=== PATIENT | male | born 1935 | race Hispanic/Latino ===

== ENCOUNTER 2020-04-24 19:01 | Emergency (ER) | payer MEDICARE ==
--- NOTE | 2020-04-24 19:05 | Emergency Department Report ---
Blank Doc - Documentation Documentation: 85-year-old male that presents with mechincal trip and fall and hit face against the toilet. This initial assessment/diagnostic orders/clinical plan/treatment(s) is/are subject to change based on patient's health status, clinical progression and re- assessment by fellow clinical providers in the ED. Further treatment and workup at subsequent clinical providers discretion. Patient/guardians urged not to elope from the ED as their condition may be serious if not clinically assessed and managed. Initial orders include: 1- Patient sent to [facility] for further evaluation and treatment 2- CT head/cervical spine 3- cervical collar
[2020-04-24 19:19] VITALS: BP 129/93
--- NOTE | 2020-04-24 19:48 | Cat Scan Report ---
CT HEAD WITHOUT CONTRAST INDICATION / CLINICAL INFORMATION: Trauma. Patient sustained head injury secondary to trip and fall. TECHNIQUE: All CT scans at this location are performed using CT dose reduction for ALARA by means of automated e xposure control. COMPARISON: None available. FINDINGS: HEMORRHAGE: No evidence of intracranial hemorrhage or extra-axial fluid collection. EXTRA-AXIAL SPACES: Cortical sulci and sylvian fissures are enlarged reflecting a degree of parenchym al volume loss which is within normal limits for the patient's age of 85 years. Basilar cisterns have an unremarkable appearance. VENTRICULAR SYSTEM: The third and lateral ventricles are mildly enlarged reflecting presence of age r elated parenchymal volume loss. CEREBRAL PARENCHYMA: Periventricular and deep white matter lucency is observed. This is probably seco ndary to microvascular ischemic change. There is no indication of recent infarction. No areas of ence phalomalacia are identified. MIDLINE SHIFT OR HERNIATION: There is no mass effect. CEREBELLUM / BRAINSTEM: Brainstem has an unremarkable appearance. Age related cerebellar atrophy is n oted. MIDLINE STRUCTURES:Pituitary gland has an unremarkable appearance. No abnormalities are seen in the p ineal region. INTRACRANIAL VESSELS:Calcified atherosclerotic plaque is present along the course of the cavernous se gments of both internal carotid arteries. Similar findings are seen at the distal vertebral arteries. There is moderate vallecular ectasia of the basilar artery. ORBITS: Status post bilateral cataract surgery. No additional abnormality. SOFT TISSUES of HEAD: There is a scalp hematoma involving the forehead lateralizing to the left the m idline. Subcutaneous emphysema is observed indicating the presence of a scalp laceration. CALVARIUM: Evaluation of bone windows reveals no abnormalities. PARANASAL SINUSES / MASTOID AIR CELLS: Paranasal sinuses are free from inflammatory mucosal disease. Mastoid air cells are normally pneumatized. ADDITIONAL FINDINGS: None. IMPRESSION: 1. Left forehead scalp hematoma and laceration. 2. Age-related involutional changes of parenchymal volume loss and microvascular ischemia. 3. No acute intracranial abnormality. Signer Name: Stew Brooks MD Signed: 04/24/2020 7:43 PM Workstation Name: [id number]
[2020-04-24 20:06] LABS: Basophils % (Auto) 0.6 % (0.0-1.8); Eosinophils # (Auto) 0.2 K/mm3 (0.0-0.4); Eosinophils % (Auto) 2.2 % (0.0-4.3); Hematocrit 38.2 % (35.5-45.6); Hemoglobin 13.1 gm/dl (11.8-15.2); Lymphocytes # (Auto) 1.6 K/mm3 (1.2-5.4); Mean Corpuscular HGB Conc 34 % (32-34); Mean Corpuscular Volume 94 fl (84-94); Monocytes # (Auto) 0.6 K/mm3 (0.0-0.8); Monocytes % (Auto) 8.7 % (0.0-7.3); Platelet Count 204 K/mm3 (140-440); Red Blood Count 4.05 M/mm3 (3.65-5.03)
[2020-04-24 20:26] LABS: Alanine Aminotransferase 23 units/L (7-56); Albumin 4.1 g/dL (3.9-5); BUN/Creatinine Ratio 20; Blood Urea Nitrogen 24 mg/dL (9-20); Calcium 9.2 mg/dL (8.4-10.2); Hemolysis Index 20
[2020-04-24 20:27] LABS: INR 2.7 (0.87-1.13)
[2020-04-24 20:28] LABS: Partial Thromboplastin Time 46.2 Sec. (24.2-36.6)
--- NOTE | 2020-04-24 20:36 | Cat Scan Report ---
CT CERVICAL SPINE WITHOUT CONTRAST INDICATION / CLINICAL INFORMATION: Trauma. Slip and fall with resultant neck injury. Neck pain. TECHNIQUE: Axial CT images were obtained through the cervical spine. Sagittal and coronal reformatted images wer e produced. All CT scans at this location are performed using CT dose reduction for ALARA by means of automated exposure control. COMPARISON: None available. FINDINGS: ALIGNMENT: There is a levoscoliosis in the cervical region. Exaggerated thoracic kyphosis is associat ed with loss of the lower cervical lordosis. There is no indication of traumatic subluxation VERTEBRAE: No indication of fracture. DISC SPACES: Advanced loss of disc height is noted at the C5-6, C6-7 and C7-T1 levels. INDIVIDUAL LEVEL ANALYSIS: C2-3: Loss of disc height is noted. Central spinal canal and neuroforamina are adequate in size in sp ite of the presence of moderate bilateral facet arthropathy. C3-4: Advanced right sided facet arthritic changes are noted. Central spinal canal and neuroforamina are adequately maintained. C4-5: Right worse than left facet and uncovertebral arthritic changes contribute to severe right-side d C5 nerve root neuroforaminal stenosis. Central spinal canal is adequate in size. Mild left-sided C5 nerve root neuroforaminal narrowing is observed. C5-6: Near complete loss of disc height is noted. Reactive change secondary at the C5-6 level. To deg enerative disc disease is observed the adjacent endplates. Bilateral facet and uncovertebral arthriti c changes are demonstrated resulting in severe bilateral foraminal stenosis. Prominent anterior and m oderate posterior osteophyte formation are observed. There is a mild degree of central canal stenosis at the C5-6 level. C6-7: Advanced loss of disc height is noted. Reactive changes secondary to degenerative disc disease are seen at the adjacent endplates. Prominent anterior and moderate posterior osteophyte formation is observed. Uncovertebral arthropathy is a prominent finding resulting in severe bilateral neuroforami nal stenosis. Central spinal canal remains adequate in size. C7-T1:Loss of disc height is noted. Prominent anterior and mild posterior osteophyte formation are ob served. Central spinal canal is adequately maintained as are the C8 nerve root neuroforamina. CRANIOCERVICAL JUNCTION:No significant abnormality. SPINAL CANAL: Stephanie osteophyte produces mild narrowing of the central spinal canal PARASPINAL SOFT TISSUES: No significant abnormality. ADDITIONAL FINDINGS: None. LUNG APICES: No significant abnormality of visualized lungs. IMPRESSION: 1. No indication of fracture or traumatic subluxation. 2. Levoscoliosis and widespread cervical spondylosis with multifocal neuroforaminal stenosis as descr ibed level by level above. Signer Name: Stew Brooks MD Signed: 04/24/2020 8:32 PM Workstation Name: [id number]
[2020-04-24] MEDS ORDERED: ACETAMINOPHEN 500 MG TAB PO ONE (23:33)
[2020-04-24] MEDS ORDERED: DIPHtheria,PERTUSSIS(ACELL),TETANUS VACCINE/PF 0.5 ML VIAL IM ONE (23:33)
[2020-04-24] MEDS ORDERED: LIDOCAINE (1%) 10 MG/1 ML VIAL 20 ML MDV INFILTRATI ONE (23:33)
[2020-04-25] MEDS ORDERED: ONDANSETRON 4 MG ODT TAB PO ONE (00:19)
[2020-04-25] MEDS ORDERED: HYDROcodone/ACETAMINOPHEN 5-325 MG TAB PO ONE (00:19)
--- NOTE | 2020-04-25 00:24 | Emergency Department Report ---
ED Fall HPI - General Chief Complaint: Head Injury Stated Complaint: LACERATION TO FOREHEAD Time Seen by Provider: 04/24/20 19:03 Source: patient Mode of arrival: Wheelchair - History of Present Illness Initial Comments: Per family, patient is an 85-year-old white male with a history of coronary artery disease and status post CABG and who is on Coumadin presents to the ED with complaint of headache and frontal scalp bleeding laceration after he tripped on a piece of furniture when going to the bathroom and hit his forehead against a piece of furniture at home with extensive bleeding laceration about 6 hours ago. Family states that the patient is not up-to-date with his tetanus vaccinations. Family states that the patient did not lose any consciousness, has not had any nausea, vomiting, change in vision, dizziness, syncope, seizures, neck pain, back pain, chest pain, shortness of breath, or dental injuries. 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 denies: neck pain, numbness, weakness, chest paint, abdominal pain, hematuria, unable to walk, lightheaded, vertigo, confusion, other - Related Data Previous Rx's Medication Instructions Recorded Last Taken Type Acetaminophen [Tylenol] 500 mg PO Q6HR PRN #24 tablet 04/25/20 Unknown Rx cephALEXin [Keflex] 500 mg PO Q12HR #20 cap 04/25/20 Unknown Rx Allergies Allergy/AdvReac Type Severity Reaction Status Date / Time No Known Allergies Allergy Unverified 04/24/20 19:18 ED Review of Systems ROS: Stated complaint: LACERATION TO FOREHEAD Other details as noted in HPI Constitutional: denies: chills, fever Eyes: other (Bleeding frontal scalp laceration). denies: eye pain, eye discharge, vision change ENT: denies: ear pain, throat pain Respiratory: denies: cough, shortness of breath, wheezing Cardiovascular: denies: chest pain, palpitations Endocrine: no symptoms reported Gastrointestinal: denies: abdominal pain, nausea, vomiting, diarrhea Genitourinary: denies: urgency, dysuria Musculoskeletal: denies: back pain, joint swelling, arthralgia Skin: other (Bleeding frontal scalp laceration). denies: rash, lesions Neurological: headache. denies: weakness, paresthesias Psychiatric: denies: anxiety, depression Hematological/Lymphatic: denies: easy bleeding, easy bruising ED Past Medical Hx - Past Medical History Hx Heart Attack/AMI: Yes - Surgical History Hx Open Heart Surgery: Yes - Medications Home Medications: Home Medications Medication Instructions Recorded Confirmed Last Taken Type Acetaminophen [Tylenol] 500 mg PO Q6HR PRN #24 tablet 04/25/20 Unknown Rx cephALEXin [Keflex] 500 mg PO Q12HR #20 cap 04/25/20 Unknown Rx ED Physical Exam - General Limitations: No Limitations General appearance: alert, in no apparent distress - Head Head exam: Present: other (Bleeding frontal scalp 12 cm laceration) - Eye Eye exam: Present: normal appearance, PERRL, EOMI Pupils: Present: normal accommodation - ENT ENT exam: Present: normal exam, normal orophraynx, mucous membranes moist, TM's normal bilaterally, normal external ear exam - Neck Neck exam: Present: normal inspection, full ROM. Absent: tenderness - Respiratory Respiratory exam: Present: normal lung sounds bilaterally. Absent: respiratory distress, wheezes, rales, rhonchi, chest wall tenderness, accessory muscle use, decreased breath sounds - Cardiovascular Cardiovascular Exam: Present: regular rate, normal rhythm, normal heart sounds. Absent: systolic murmur, diastolic murmur, rubs, gallop - GI/Abdominal GI/Abdominal exam: Present: soft, normal bowel sounds. Absent: tenderness, guarding, rebound, hyperactive bowel sounds, hypoactive bowel sounds - Extremities Exam Extremities exam: Present: normal inspection, full ROM, normal capillary refill - Back Exam Back exam: Present: normal inspection, full ROM. Absent: tenderness, CVA tenderness (R), CVA tenderness (L), muscle spasm, paraspinal tenderness - Neurological Exam Neurological exam: Present: alert, oriented X3, CN II-XII intact, normal gait, reflexes normal - Psychiatric Psychiatric exam: Present: normal affect, normal mood - Skin Skin exam: Present: warm, dry, intact, normal color, other (Bleeding 12 cm frontal scalp laceration). Absent: rash ED Course Vital Signs 04/24/20 19:18 Temperature 98.9 F Pulse Rate 79 Respiratory 18 Rate Blood Pressure 129/93 [Right] O2 Sat by Pulse 97 Oximetry - Laceration /Wound Repair Left Anterior Frontal Wound Location: head (Midline frontal scalp laceration) Wound Length (cm): 12 Wound's Depth, Shape: irregular, flap Wound Explored: contaminated Irrigated w/ Saline (ccs): 100 Betadine Prep?: No Anesthesia: 1% Lidocaine Volume Anesthetic (ccs): 8 Wound Debrided: extensive Wound Repaired With: sutures Suture Size/Type: 5:0, proline Number of Sutures: 25 Layer Closure?: No Sterile Dressing Applied?: Yes Progress: The wound was cleaned thoroughly, and the local anesthetic 1% lidocaine was used the wound was sutured per protocol and the patient tolerated the procedure well. Bleeding was well controlled. Sterile gauze was used to cover the sutured wound and the patient was discharged home on pain medications and prophylactic antibiotics, and the family was advised of the patient follow-up with the primary care physician in 7 to 10 days for reevaluation or have the patient return to the ED immediately if symptoms get worse. Family was otherwise advised to have the patient return to the ED or to the primary care physician in 8 to 10 days for suture removal. ED Medical Decision Making - Lab Data Result diagrams: 04/24/20 19:32 04/24/20 19:32 - Radiology Data Radiology results: report reviewed, [place] [address] Cat Scan Report Signed Patient: PHILIPPE SOOD MR#: [id number] : 1935 Acct:[id number] Age/Sex: 85 / M ADM Date: 04/24/20 Loc: ED Attending Dr: Ordering Physician: GEOFF LOMAX NP Date of Service: 04/24/20 Procedure(s): CT cervical spine wo con Accession Number(s): [id number] cc: GEOFF LOMAX NP CT CERVICAL SPINE WITHOUT CONTRAST INDICATION / CLINICAL INFORMATION: Trauma. Slip and fall with resultant neck injury. Neck pain. TECHNIQUE: Axial CT images were obtained through the cervical spine. Sagittal and coronal reformatted images were produced. All CT scans at this location are performed using CT dose reduction for ALARA by means of automated exposure control. COMPARISON: None available. FINDINGS: ALIGNMENT: There is a levoscoliosis in the cervical region. Exaggerated thoracic kyphosis is associated with loss of the lower cervical lordosis. There is no indication of traumatic subluxation VERTEBRAE: No indication of fracture. DISC SPACES: Advanced loss of disc height is noted at the C5-6, C6-7 and C7-T1 l evels. INDIVIDUAL LEVEL ANALYSIS: C2-3: Loss of disc height is noted. Central spinal canal and neuroforamina are adequate in size in spite of the presence of moderate bilateral facet arthropathy. C3-4: Advanced right sided facet arthritic changes are noted. Central spinal canal and neuroforamina are adequately maintained. C4-5: Right worse than left facet and uncovertebral arthritic changes contribute to severe right- sided C5 nerve root neuroforaminal stenosis. Central spinal canal is adequate in size. Mild left- sided C5 nerve root neuroforaminal narrowing is observed. C5-6: Near complete loss of disc height is noted. Reactive change secondary at the C5-6 level. To degenerative disc disease is observed the adjacent endplates. Bilateral facet and uncovertebral arthritic changes are demonstrated resulting in severe bilateral foraminal stenosis. Prominent anterior and moderate posterior osteophyte formation are observed. There is a mild degree of central canal stenosis at the C5-6 level. C6-7: Advanced loss of disc height is noted. Reactive changes secondary to degenerative disc disease are seen at the adjacent endplates. Prominent anterior and moderate posterior osteophyte formation is observed. Uncovertebral arthropathy is a prominent finding resulting in severe bilateral neuroforaminal stenosis. Central spinal canal remains adequate in size. C7-T1:Loss of disc height is noted. Prominent anterior and mild posterior osteophyte formation are observed. Central spinal canal is adequately maintained as are the C8 nerve root neuroforamina. CRANIOCERVICAL JUNCTION:No significant abnormality. SPINAL CANAL: Stephanie osteophyte produces mild narrowing of the central spinal canal PARASPINAL SOFT TISSUES: No significant abnormality. ADDITIONAL FINDINGS: None. LUNG APICES: No significant abnormality of visualized lungs. IMPRESSION: 1. No indication of fracture or traumatic subluxation. 2. Levoscoliosis and widespread cervical spondylosis with multifocal neuroforaminal stenosis as described level by level above. Signer Name: Stew Brooks MD Signed: 04/24/2020 8:32 PM Workstation Name: [id number] Transcribed By: Dictated By: Stew Brooks MD Electronically Authenticated By: Stew Brooks MD Signed Date/Time: 04/24/202031 DD/ 22 TD/TT: [place] [address] Cat Scan Report Signed Patient: PHILIPPE SOOD MR#: [id number] : 1935 Acct:[id number] Age/Sex: 85 / M ADM Date: 04/24/20 Loc: ED Attending Dr: Ordering Physician: GEOFF LOMAX NP Date of Service: 04/24/20 Procedure(s): CT head/brain wo con Accession Number(s): [id number] cc: GEOFF LOMAX NP CT HEAD WITHOUT CONTRAST INDICATION / CLINICAL INFORMATION: Trauma. Patient sustained head injury secondary to trip and fall. TECHNIQUE: All CT scans at this location are performed using CT dose reduction for ALARA by means of automated exposure control. COMPARISON: None available. FINDINGS: HEMORRHAGE: No evidence of intracranial hemorrhage or extra-axial fluid collection. EXTRA-AXIAL SPACES: Cortical sulci and sylvian fissures are enlarged reflecting a degree of parenchymal volume loss which is within normal limits for the patient's age of 85 years. Basilar cisterns have an unremarkable appearance. VENTRICULAR SYSTEM: The third and lateral ventricles are mildly enlarged reflecting presence of age related parenchymal volume loss. CEREBRAL PARENCHYMA: Periventricular and deep white matter lucency is observed. This is probably secondary to microvascular ischemic change. There is no indication of recent infarction. No areas of encephalomalacia are identified. MIDLINE SHIFT OR HERNIATION: There is no mass effect. CEREBELLUM / BRAINSTEM: Brainstem has an unremarkable appearance. Age related cerebellar atrophy is noted. MIDLINE STRUCTURES:Pituitary gland has an unremarkable appearance. No abnormalities are seen in the pineal region. INTRACRANIAL VESSELS:Calcified atherosclerotic plaque is present along the course of the cavernous segments of both internal carotid arteries. Similar findings are seen at the distal vertebral arteries. There is moderate vallecular ectasia of the basilar artery. ORBITS: Status post bilateral cataract surgery. No additional abnormality. SOFT TISSUES of HEAD: There is a scalp hematoma involving the forehead lateralizing to the left the midline. Subcutaneous emphysema is observed indicating the presence of a scalp laceration. CALVARIUM: Evaluation of bone windows reveals no abnormalities. PARANASAL SINUSES / MASTOID AIR CELLS: Paranasal sinuses are free from inflammatory mucosal disease. Mastoid air cells are normally pneumatized. ADDITIONAL FINDINGS: None. IMPRESSION: 1. Left forehead scalp hematoma and laceration. 2. Age-related involutional changes of parenchymal volume loss and microvascular ischemia. 3. No acute intracranial abnormality. Signer Name: Stew Brooks MD Signed: 04/24/2020 7:43 PM Workstation Name: [id number] Transcribed By: Dictated By: Stew Brooks MD Electronically Authenticated By: Stew Brooks MD Signed Date/Time: 04/24/201942 DD/ 36 TD/TT: - Medical Decision Making This is an 85-year-old white male with a history of coronary artery disease and status post CABG and who is on Coumadin presents to the ED with complaint of headache and frontal scalp bleeding laceration after he tripped on a piece of furniture when going to the bathroom and hit his forehead against a piece of furniture at home with extensive bleeding laceration about 6 hours ago. Family states that the patient is not up-to-date with his tetanus vaccinations. In the ED, patient is alert and oriented x3 and is not in distress, with normal vital signs. Patient is humerus and present during the physical exam which revealed extensive 12 cm frontal scalp bleeding laceration. The head CT scan without contrast showed no acute intracranial hemorrhage or intracranial abnormalities. The C-spine CT scan without contrast showed no acute cervical disc fractures or subluxations. Patient was treated for pain and also given booster tetanus vaccination. The frontal scalp bleeding laceration was cleaned thoroughly and local anesthetic lidocaine 1% solution used to provide anesthesia, and the wound was sutured per protocol. Patient tolerated the procedure well. The patient was then discharged home on oral prophylactic antibiotics and pain medications and family was advised of the patient follow-up with the primary care physician in 5 to 7 days for reevaluation or have the patient return to the ED immediately if symptoms get worse. Family was also advised of the patient return to the ED or to his primary care physician in 8 to 10 days for suture removal. - Differential Diagnosis Scalp contusion; Scalp laceration; head injury; cervical sprain Critical care attestation.: If time is entered above; I have spent that time in minutes in the direct care of this critically ill patient, excluding procedure time. ED Disposition Clinical Impression: Spasm of muscle of lower back Laceration of scalp Qualifiers: Encounter type: initial encounter Qualified Code(s): S01.01XA - Laceration without foreign body of scalp, initial encounter Contusion of face, scalp, and neck Qualifiers: Encounter type: initial encounter Qualified Code(s): S00.83XA - Contusion of other part of head, initial encounter; S00.03XA - Contusion of scalp, initial encounter; S10.93XA - Contusion of unspecified part of neck, initial encounter Disposition: DC-01 TO HOME OR SELFCARE Is pt being admited?: No Does the pt Need Aspirin: No Condition: Stable Instructions: Scalp Contusion in Adults (ED), Laceration (ED), Suture Care (ED) Additional Instructions: The head CT scan without contrast and C-spine CT scan without contrast showed no acute abnormalities. Therefore take medication as needed for pain with food, take the antibiotic as advised and follow-up with your primary care physician in 7 to 10 days for reevaluation. Return to the ED immediately if you develop severe pain, swelling, redness around the wounds, intractable nausea and vomiting, seizures or purulent discharge and fever. Otherwise follow-up with your primary care physician or return to the ED in 10 days for suture removal. Prescriptions: Acetaminophen [Tylenol] 500 mg PO Q6HR PRN #24 tablet PRN Reason: Pain , Severe (7-10) cephALEXin [Keflex] 500 mg PO Q12HR #20 cap Referrals: MARSHALL DENT MD [Staff Physician] - 7-10 days Time of Disposition: 00:22 Print Language: TRINIDADIAN
== END 2020-04-25 00:50 | disposition home or self-care (01) ==
LOC: ED 19:01
DX: S01.01XA Laceration without foreign body of scalp, initial encounter (principal); M62.830 Muscle spasm of back; W01.0XXA Fall on same level from slipping, tripping and stumbling without subsequent striking against object, initial encounter; Y93.89 Activity, other specified; Y92.009 Unspecified place in unspecified non-institutional (private) residence as the place of occurrence of the external cause; Y99.8 Other external cause status
CPT/HCPCS: 36415; 70450; 72125; 80053; 84484; 85025; 85610; 85730; 90471; 90715